=== PATIENT | male | born 1955 | race Asian ===

== ENCOUNTER → 2018-01-01 | Outpatient (REF) | payer BC | LOC: M LAB REF 10:14 | DX: R19.7 Diarrhea, unspecified (principal) | CPT/HCPCS: 87086 ==

== ENCOUNTER → 2018-01-02 | Outpatient (CLI) | payer BC | LOC: M LAB 08:24 | DX: R19.7 Diarrhea, unspecified (principal) | CPT/HCPCS: 87507 ==